=== PATIENT | female | born 1935 | race Caucasian/White ===

== ENCOUNTER 2016-07-22 08:57 | Inpatient (IN) | payer OTHER ==
[~2016-07-22] VITALS: Ht 162.6 cm; Wt 61.7 kg
--- NOTE | ~2016-07-22 | CON ---
[place], [place] REPORT OF CONSULTATION NAME: ARACELI NI I UNIT #: [id number] ROOM: 421 DOCTOR: APRIL BONILLA MD BIRTHDATE: [birth year] DOS: 07/26/2016 CARDIOLOGY CONSULTATION REASON FOR CONSULTATION: Tachycardia and wide complex tachycardia. HISTORY OF PRESENT ILLNESS: The patient is an 81-year-old senior care resident with a history of dementia. She was brought in to the hospital on this occasion because of worsening cough, congestion and fever. She was given bronchodilators and steroids as well as fluid resuscitation. Her viral studies are positive for influenza A and she is being managed for this. She does have a history of paroxysmal atrial fibrillation, but recently has been in sinus rhythm. Her EKG on admission did show multifocal atrial tachycardia with occasional PVCs. Last evening, her electrocardiogram showed multifocal atrial tachycardia followed by SVT, within this, she did have a 5-beat run of wide complex tachycardia. The patient is unable to report whether she has symptoms. Electrolytes showed a sodium of 146, potassium of 3.8, chloride of 110 and CO2 of 27. The magnesium level was 2.1. Today, her heart rate seems to be much better controlled and she is in sinus rhythm with occasional PACs at a rate of about 73. PAST MEDICAL HISTORY: Includes dementia, history of stroke, obstructive lung disease, hypertension, hyperlipidemia, and anemia. MEDICATIONS: Prior to admission include Breo Ellipta inhaled daily, B12 1000 mcg every month IM, DuoNeb q.6 hours, oxygen by continuous nasal cannula at 3 liters per minute, acetaminophen p.r.n., dietary supplements b.i.d., aspirin 81 mg daily, vitamin D 2000 units daily, Colace 100 mg daily, magnesium hydroxide p.r.n. constipation, Namenda 10 mg b.i.d., metoprolol 25 mg q.12 hours, multivitamin daily, prednisone 10 mg daily on a tapering-dose schedule, Daliresp 500 mcg tablets daily, simvastatin 10 mg at bedtime, Dulcolax 10 mg daily, Blistex p.r.n. and Balmex p.r.n. ALLERGIES: THE PATIENT LISTS ALLERGIES TO CEFIXIME, CEFUROXIME AND CIPROFLOXACIN. FAMILY HISTORY: Unknown. REVIEW OF SYSTEMS: Impossible, the patient does not answer any questions. SOCIAL HISTORY: The patient lives in a senior care. She does not currently smoke or consume alcohol. PHYSICAL EXAMINATION: GENERAL: The patient is an elderly white female who is arousable. She answers simple questions, but is unable to hold a conversation. HEENT: Normocephalic, atraumatic. Extraocular muscles are intact. Sclerae are clear. Pupils are round and react to light. The oral mucosa is moist. Tongue is midline. NECK: Supple. She has no jugular distention, but she does have hepatojugular reflux. Carotids are full. I heard no bruits. [place], [place] REPORT OF CONSULTATION NAME: ARACELI NI I UNIT #: [id number] ROOM: 421 DOCTOR: APRIL BONILLA MD BIRTHDATE: [birth year] LUNGS: Respirations were slightly labored. She does have scattered wheezes over all lung tolliver. CARDIOVASCULAR: Heart has a regular rhythm with frequent premature beats. She has a fourth heart sound, but no third heart sound. ABDOMEN: Soft and normoactive without masses, organomegaly, bruits or tenderness. EXTREMITIES: Showed trace edema bilaterally. Peripheral pulses were not palpable bilaterally. LABORATORY DATA: Her electrocardiogram today shows sinus rhythm with PACs, it is otherwise unremarkable. Other rhythm strips from earlier in the hospitalization show wandering atrial pacemaker, multifocal atrial tachycardia and supraventricular tachycardia including a 5-beat run of wide complex tachycardia, which may be aberrant. IMPRESSION: 1. Influenza A. 2. Tachycardia. The patient does have a history of atrial fibrillation, but is currently in sinus rhythm. Her rhythm strips do show multifocal atrial tachycardia, which is likely related to her lung pathology. 3. Wide complex tachycardia, this may represent nonsustained ventricular tachycardia or aberrant conduction of supraventricular tachycardia. 4. Echocardiogram this admission showed normal left ventricular size with moderate concentric left ventricular hypertrophy and normal left ventricular systolic function. The aortic valve was grossly normal, study was technically difficult. 5. Dementia. PLAN: I would continue to treat the patient supportively. No other cardiac workup is planned at this time. Effort should be made to maintain normal hydration and electrolyte balance. We realized that she does have a risk for recurrent stroke, which is probably quite high; however, her risk for bleeding from anticoagulation therapy is quite high as well and therefore we would not recommend anticoagulation beyond aspirin at this time. We will continue to follow her intermittently with her primary physicians and we thank the hospitalist service for asking our advice regarding her care. APRIL BONILLA MD CM:CONSTR:REPORT OF CONSULTATION [id number] 07/27/16 1415 interface
[~2016-07-22 08:57] MED LIST: AMOCLAN 600 MG/75 ML PO; AMOXICILLIN500 M2 PO; APAP500 MG PO; ARICEPT10 M1 PO; ASPIRIN325 M2 PO; ASPIRIN81 M1 PO; B COMPLEX1 TA1 PO; BALMEX TP; BREO ELLIPTA 21 EACH IH; CEFUROXIME AXE500 MG PO; COLACE100 MG PO; DALIRESP500 MC1 PO; DELTASONE20 M1 PO; DETROL LA4 MG PO; DIOVAN PO; DIOVAN40 MG PO; DIOVAN80 M1 PO; DONEPEZIL PO; DUONEB 3 MG/3 ML3 M1 INH; GUAIFENESIN600 MG PO; HYDR1000 IM; LOPRESSOR25 MG PO; MULTI VITAMINS1 TAB PO; NAMENDA10 MG PO; NORVASC5 MG PO; OXYGEN NAS; PAIN RELIEVER650 MG PO; POTASSIUM CHLO20 ME3 PO; POTASSIUM PO; PREDNISONE10 MG PO; PROSOURCE PLUS30 ML PO; PROSOURCE PROT7.5 GM PO; SIMVASTA PO; SUPRAX400 M2 PO; VITAMIN D PO; VITAMIN D-32000 UNIT PO; ZINC OXIDE OINT1 OZ T; ZOCOR10 MG PO
[2016-07-22 09:03] VITALS: BP 104/48
[2016-07-22] MEDS ORDERED: FLAGYL500 MG PO (09:15)
[2016-07-22 09:34] LABS: HEMATOCRIT 37.6 % (37.0-47.0); MEAN CELL VOLUME 90.8 fl (81.0-99.0); MEAN CORPUSCULAR HGB CONC 31.9 g/dl (33.0-37.0); PLATELET COUNT AUTOMATED 181 10*3/uL (130-400); RED BLOOD COUNT 4.14 10*6/uL (4.10-5.10); RED CELL DISTRI WIDTH 14.6 % (0-14.5); WHITE BLOOD COUNT 7.9 10*3/uL (4.8-10.8)
[2016-07-22 09:46] LABS: ABG BASE EXCESS 2.7 mmol/L (-2.0-2.0); ABG CO2 CONTENT 28.2 mmol/L (23-27); ABG HCO3 26.9 mmol/l (22-26); ABG TEMPERATURE 101.5 F (98.0-99.0); ARTERIAL BLOOD GAS PH 7.401 (7.35-7.45)
[2016-07-22 09:49] LABS: INTERNATIONAL NORM RATIO 1.2 (2.0-3.5); PROTHROMBIN TIME 12.6 SECONDS (9.0-12.4)
[2016-07-22 09:52] LABS: ALBUMIN 2.7 gm/dl (3.1-4.5); ALKALINE PHOSPHATASE 58 U/L (45-117); BILIRUBIN, TOTAL 0.2 mg/dl (0.2-1.0); BUN 18 mg/dl (7-24); CARBON DIOXIDE 29 mmol/L (21-32); CHLORIDE 104 mmol/L (98-107); EST GLOM FILT AFRICAN AMERICAN > 60 ml/min; GLUCOSE 149 mg/dL (65-99); POTASSIUM 3.8 mmol/L (3.5-5.1); SGOT/AST 16 IU/L (3-35); SGPT/ALT 15 U/L (12-78); SODIUM 141 mmol/L (136-145)
[2016-07-22 09:53] LABS: TROPONIN I < 0.015 ng/ml (<0.5)
[2016-07-22 09:54] LABS: LYMPHOCYTE # 0.4 10*3/uL (1.3-4.4); MONOCYTE # 0.4 10*3/uL (0.1-1.0); NEUTROPHIL # 7.1 10*3/uL (2.3-7.9); NEUTROPHILS 90 % (47-73); PLATELET SUFFICIENCY NORMAL (NORMAL); TOTAL CELLS COUNTED 100 #CELLS
[2016-07-22 10:40] LABS: BILIRUBIN NEGATIVE (NEGATIVE); BLOOD 3+ (NEGATIVE); CLARITY TURBID (CLEAR); COLOR YELLOW (YELLOW); GLUCOSE NEGATIVE (NEGATIVE); KETONE 1+ (NEGATIVE); LEUKO ESTERASE 3+ (NEGATIVE); NITRITE POSITIVE (NEGATIVE); PROTEIN 2+ (NEGATIVE); UROBILINOGEN 0.2 E.U./dl (0.2-1.0)
[2016-07-22 10:46] LABS: EPITHELIAL CELLS 31-40
[2016-07-22 10:47] LABS: BACTERIA 2+; MUCOUS 1+; RBC 31-40 rbc/hpf (0-2); URINE REFLEX COMMENT YES (NO); WBC 31-40 wbc/hpf (0-5)
[2016-07-22 11:03] VITALS: BP 107/58
[2016-07-22 11:48] VITALS: BP 103/60
[2016-07-22 13:45] VITALS: BP 108/56
[2016-07-22] MEDS ORDERED: B121000 MCG/1 IM (14:39)
[2016-07-22] MEDS ORDERED: BLISTEX MEDICATE6 GM TP (14:40)
[2016-07-22] MEDS ORDERED: DULCOLAX10 M1 RC (14:41)
[2016-07-22] MEDS ORDERED: MILK OF MA400 MG/52 PO (14:42)
[2016-07-22 16:00] VITALS: BP 109/57
[2016-07-22 18:09] LABS: CKMB 4.6 ng/ml (0.5-3.6); CPK 121 U/L (26-192)
[2016-07-22 18:10] LABS: TROPONIN I < 0.015 ng/ml (<0.5)
[2016-07-22 20:00] VITALS: BP 94/58
[2016-07-23] VITALS: BP 121/67
[2016-07-23 00:43] LABS: CKMB 4.6 ng/ml (0.5-3.6); CPK 107 U/L (26-192)
[2016-07-23 00:45] LABS: TROPONIN I < 0.015 ng/ml (<0.5)
[2016-07-23 04:00] VITALS: BP 94/34
[2016-07-23 05:59] LABS: HEMATOCRIT 34.6 % (37.0-47.0); HEMOGLOBIN 10.8 g/dl (12.0-16.0); LYMPH # 0.4 10*3/uL (1.3-4.4); LYMPH % 9.3 % (27.0-41.0); MEAN CELL VOLUME 92.5 fl (81.0-99.0); MEAN CORPUSCULAR HGB 28.9 pg (27.0-31.0); MEAN CORPUSCULAR HGB CONC 31.2 g/dl (33.0-37.0); MEAN PLATELET VOLUME 9.7 fl (9.6-12.3); MONO # 0.2 10*3/uL (0.1-1.0); MONO % 4.2 % (3.0-9.0); NEUT # 4.1 10*3/uL (2.3-7.9); NEUT % 85.9 % (47.0-73.0); PLATELET COUNT AUTOMATED 163 10*3/uL (130-400); RED BLOOD COUNT 3.74 10*6/uL (4.10-5.10); RED CELL DISTRI WIDTH 14.6 % (0-14.5); WHITE BLOOD COUNT 4.8 10*3/uL (4.8-10.8)
[2016-07-23 06:22] LABS: INTERNATIONAL NORM RATIO 1.2 (2.0-3.5); PROTHROMBIN TIME 12.7 SECONDS (9.0-12.4)
[2016-07-23 06:33] LABS: ALBUMIN 2.2 gm/dl (3.1-4.5); ALKALINE PHOSPHATASE 42 U/L (45-117); BILIRUBIN, TOTAL 0.2 mg/dl (0.2-1.0); BUN 21 mg/dl (7-24); CARBON DIOXIDE 26 mmol/L (21-32); CHLORIDE 113 mmol/L (98-107); CHOLESTEROL 112 mg/dL (<200); EST GLOM FILT AFRICAN AMERICAN > 60 ml/min; FREE T4 1.45 ng/dl (0.76-1.46); GLUCOSE 152 mg/dL (65-99); HDL CHOLESTEROL 59 mg/dl (40-60); LDL CHOLESTEROL 43 mg/dL (9-159); MAGNESIUM 1.9 mg/dL (1.5-2.1); PHOSPHOROUS 2.7 mg/dL (2.5-4.9); SGOT/AST 18 IU/L (3-35); SGPT/ALT 12 U/L (12-78); SODIUM 149 mmol/L (136-145); THYROID STIM HORMONE (HS) 0.212 uIU/ml (0.358-4.75); TOTAL PROTEIN 5.8 gm/dL (6.4-8.2); TRIGLYCERIDES 51 mg/dl (<150); VLDL CHOLESTEROL 10 mg/dL (6-40)
[2016-07-23 07:00] LABS: HEMOGLOBIN A1c 5.5 % (4.8-5.6)
[2016-07-23 08:00] VITALS: BP 106/80
[2016-07-23 08:18] LABS: VITAMIN D, 25-HYDROXY 38.5 ng/mL (30-100)
[2016-07-23 08:26] LABS: FOLIC ACID > 24.00 ng/mL (>5.38)
[2016-07-23 12:00] VITALS: BP 100/51
[2016-07-23 16:00] VITALS: BP 166/78
[2016-07-23 20:00] VITALS: BP 116/55
[2016-07-24] VITALS: BP 113/62
[2016-07-24 04:00] VITALS: BP 131/56
[2016-07-24 06:02] LABS: HEMATOCRIT 34.8 % (37.0-47.0); HEMOGLOBIN 10.8 g/dl (12.0-16.0); MEAN CELL VOLUME 92.8 fl (81.0-99.0); MEAN CORPUSCULAR HGB 28.8 pg (27.0-31.0); MEAN PLATELET VOLUME 10.3 fl (9.6-12.3); PLATELET COUNT AUTOMATED 167 10*3/uL (130-400); RED BLOOD COUNT 3.75 10*6/uL (4.10-5.10); RED CELL DISTRI WIDTH 14.9 % (0-14.5); WHITE BLOOD COUNT 3.9 10*3/uL (4.8-10.8)
[2016-07-24 06:37] LABS: BUN 22 mg/dl (7-24); CARBON DIOXIDE 27 mmol/L (21-32); CHLORIDE 114 mmol/L (98-107); EST GLOM FILT AFRICAN AMERICAN > 60 ml/min; GLUCOSE 176 mg/dL (65-99); MAGNESIUM 2.1 mg/dL (1.5-2.1); PHOSPHOROUS 2.7 mg/dL (2.5-4.9); SODIUM 150 mmol/L (136-145)
[2016-07-24 06:50] LABS: ATYPICAL LYMPHS 1 % (0-0); LYMPHOCYTE # 0.3 10*3/uL (1.3-4.4); METAMYELOCYTES 1 % (0-0); MONOCYTE # 0.2 10*3/uL (0.1-1.0); NEUTROPHIL # 3.4 10*3/uL (2.3-7.9); NEUTROPHILS 87 % (47-73); TOTAL CELLS COUNTED 100 #CELLS
[2016-07-24 06:51] LABS: BURR CELLS MODERATE; OVALOCYTES FEW; PLATELET SUFFICIENCY NORMAL (NORMAL)
[2016-07-24 08:00] VITALS: BP 96/64
[2016-07-24 12:00] VITALS: BP 133/78
[2016-07-24 16:00] VITALS: BP 130/70
[2016-07-24 20:00] VITALS: BP 138/79
[2016-07-25] VITALS: BP 132/79
[2016-07-25 04:00] VITALS: BP 121/62
[2016-07-25 05:47] LABS: HEMOGLOBIN 11.5 g/dl (12.0-16.0); MEAN CORPUSCULAR HGB 28.8 pg (27.0-31.0); MEAN CORPUSCULAR HGB CONC 31.9 g/dl (33.0-37.0); MEAN PLATELET VOLUME 10.6 fl (9.6-12.3); PLATELET COUNT AUTOMATED 187 10*3/uL (130-400); RED CELL DISTRI WIDTH 14.6 % (0-14.5); WHITE BLOOD COUNT 4.9 10*3/uL (4.8-10.8)
[2016-07-25 05:49] LABS: BUN 21 mg/dl (7-24); CARBON DIOXIDE 27 mmol/L (21-32); CHLORIDE 107 mmol/L (98-107); EST GLOM FILT AFRICAN AMERICAN > 60 ml/min; GLUCOSE 128 mg/dL (65-99); POTASSIUM 3.4 mmol/L (3.5-5.1); SODIUM 145 mmol/L (136-145)
[2016-07-25 06:41] LABS: ATYPICAL LYMPHS 3 % (0-0); LYMPHOCYTE # 0.7 10*3/uL (1.3-4.4); MONOCYTE # 0.4 10*3/uL (0.1-1.0); NEUTROPHIL # 3.8 10*3/uL (2.3-7.9); NEUTROPHILS 77 % (47-73); PLASMA CELL 1 % (0-0); TOTAL CELLS COUNTED 100 #CELLS
[2016-07-25 06:42] LABS: PLATELET SUFFICIENCY NORMAL (NORMAL); POLYCHROMASIA SLIGHT; ROULEAUX SLIGHT
[2016-07-25 08:00] VITALS: BP 121/69
[2016-07-25 12:00] VITALS: BP 125/69
[2016-07-25 16:00] VITALS: BP 145/82
[2016-07-25 20:00] VITALS: BP 133/73
[2016-07-25 22:45] LABS: MAGNESIUM 2.1 mg/dL (1.5-2.1); POTASSIUM 3.8 mmol/L (3.5-5.1)
[2016-07-26] VITALS: BP 141/86
[2016-07-26 07:44] VITALS: BP 128/70
[2016-07-26 07:49] LABS: HEMATOCRIT 35.3 % (37.0-47.0); HEMOGLOBIN 11.3 g/dl (12.0-16.0); MEAN CELL VOLUME 89.6 fl (81.0-99.0); MEAN CORPUSCULAR HGB 28.7 pg (27.0-31.0); MEAN PLATELET VOLUME 10.3 fl (9.6-12.3); PLATELET COUNT AUTOMATED 188 10*3/uL (130-400); RED BLOOD COUNT 3.94 10*6/uL (4.10-5.10); RED CELL DISTRI WIDTH 14.9 % (0-14.5); WHITE BLOOD COUNT 5.8 10*3/uL (4.8-10.8)
[2016-07-26 08:06] LABS: ATYPICAL LYMPHS 1 % (0-0); LYMPHOCYTE # 0.8 10*3/uL (1.3-4.4); MONOCYTE # 0.3 10*3/uL (0.1-1.0); NEUTROPHIL # 4.6 10*3/uL (2.3-7.9); NEUTROPHILS 80 % (47-73); PLATELET SUFFICIENCY NORMAL (NORMAL); TOTAL CELLS COUNTED 100 #CELLS; TOXIC GRANULATION SLIGHT
[2016-07-26 08:10] LABS: BUN 27 mg/dl (7-24); CARBON DIOXIDE 29 mmol/L (21-32); CHLORIDE 107 mmol/L (98-107); EST GLOM FILT AFRICAN AMERICAN > 60 ml/min; GLUCOSE 149 mg/dL (65-99); POTASSIUM 3.8 mmol/L (3.5-5.1); SODIUM 145 mmol/L (136-145)
[2016-07-26 12:00] VITALS: BP 136/72
[2016-07-26 17:00] VITALS: BP 128/76
[2016-07-26 20:00] VITALS: BP 126/74
[2016-07-27] VITALS: BP 154/88
[2016-07-27 07:41] VITALS: BP 134/88
[2016-07-27 12:00] VITALS: BP 114/58
[2016-07-27] MEDS ORDERED: PREDNISONE10 MG PO (13:44)
[2016-07-27] MEDS ORDERED: LOPRESSOR25 MG PO (13:44)
== END 2016-07-27 17:00 | DRG 871 ==
LOC: ED 08:57 → EDHOLD 10:08 → 4E 10:08 → ICCU 10:08 → 4E 07-25 17:09
PROVIDERS: Family Medicine; Internal Medicine; Internal Medicine Cardiovascular Disease; Nurse Practitioner Family
DX: A41.9 Sepsis, unspecified organism (principal); J18.9 Pneumonia, unspecified organism; J96.01 Acute respiratory failure with hypoxia; E43 Unspecified severe protein-calorie malnutrition; G93.40 Encephalopathy, unspecified; E87.0 Hyperosmolality and hypernatremia; J44.0 Chronic obstructive pulmonary disease with (acute) lower respiratory infection; I11.0 Hypertensive heart disease with heart failure; J09.X2 Influenza due to identified novel influenza A virus with other respiratory manifestations; I50.9 Heart failure, unspecified; N39.0 Urinary tract infection, site not specified; I47.1 Supraventricular tachycardia; R65.20 Severe sepsis without septic shock; R73.9 Hyperglycemia, unspecified; G30.9 Alzheimer's disease, unspecified; F02.80 Dementia in other diseases classified elsewhere, unspecified severity, without behavioral disturbance, psychotic disturbance, mood disturbance, and anxiety; E78.5 Hyperlipidemia, unspecified; M19.90 Unspecified osteoarthritis, unspecified site; I87.2 Venous insufficiency (chronic) (peripheral); I48.0 Paroxysmal atrial fibrillation; D64.9 Anemia, unspecified; Y95 Nosocomial condition; B96.4 Proteus (mirabilis) (morganii) as the cause of diseases classified elsewhere; Z87.440 Personal history of urinary (tract) infections; Z88.1 Allergy status to other antibiotic agents; Z79.82 Long term (current) use of aspirin; Z79.899 Other long term (current) drug therapy; Z68.23 Body mass index [BMI] 23.0-23.9, adult; Z87.891 Personal history of nicotine dependence; Z82.49 Family history of ischemic heart disease and other diseases of the circulatory system; Z86.73 Personal history of transient ischemic attack (TIA), and cerebral infarction without residual deficits